=== PATIENT | female | born 1955 | race African-American/Black ===

== ENCOUNTER 2020-03-21 22:45 | Emergency (ER) | payer MEDICAID, MEDICARE ==
[~2020-03-21] VITALS: Ht 167.6 cm; Wt 111.0 kg
[~2020-03-21 22:45] MED LIST: LISI-186 PO; METF-414 PO
[2020-03-22 00:25] LABS: BASOPHILS % 0.8 % (0.0-2.0); EOSINOPHILS % 2.5 % (0.0-5.0); HEMOGLOBIN. 11.3 g/dL (12.0-16.0); LYMPHOCYTES % 22.4 % (20.0-50.0); MEAN CORPUSCULAR HEMOGLOBIN 30.6 pg (28.0-32.0); MEAN CORPUSCULAR VOLUME 89.5 fL (81.0-99.0); MEAN PLATELET VOLUME 9.4 fl (7.4-10.4); MONOCYTES % 8.4 % (2.0-8.0); NEUTROPHILS % 65.9 % (40.0-76.0); PLATELET 190 x1000/uL (130-400); RED BLOOD CELL COUNT 3.69 mill/uL (4.2-5.4); RED CELL DISTRIBUTION WIDTH 13.9 % (11.6-14.6)
[2020-03-22 00:42] LABS: *AMPHETAMINES SCREEN URINE NEGATIVE (NEGATIVE); *BARBITURATES SCREEN URINE NEGATIVE (NEGATIVE); *BENZODIAZEPINES SCREEN URINE NEGATIVE (NEGATIVE)
[2020-03-22 00:43] LABS: *COCAINE SCREEN URINE NEGATIVE (NEGATIVE); CANNABINOID URINE SCREEN PRESUMTIVE POSITIVE (NEGATIVE); METHADONE URINE SCREEN NEGATIVE (NEGATIVE); OPIATES URINE SCREEN NEGATIVE (NEGATIVE); PHENCYCLIDINE URINE SCREEN NEGATIVE (NEGATIVE)
[2020-03-22 00:49] LABS: CHLORIDE 105 mEq/L (98-107)
[2020-03-22 00:56] LABS: ETHANOL BLOOD < 10 mg/dL
[2020-03-22] MEDS ORDERED: DOXYCYCLINE HYCLATE 100 MG/VIAL IV ONE (02:00)
[2020-03-22] MEDS ORDERED: CEFTRIAXONE 1 G PREMIX 50 ML IV SCH (02:00)
[2020-03-22] MEDS ORDERED: DOXYCYCLINE 100 MG in DEXT 5% WATER 100 ML IV SCH (02:00)
[2020-03-22 10:16] VITALS: BP 143/92
== END 2020-03-22 11:15 | disposition short-term general hospital (02) ==
LOC: ER 22:45
DX: J18.9 Pneumonia, unspecified organism (principal); R09.02 Hypoxemia; I10 Essential (primary) hypertension; E11.9 Type 2 diabetes mellitus without complications; E66.9 Obesity, unspecified; Z68.39 Body mass index [BMI] 39.0-39.9, adult
CPT/HCPCS: 36415; 71045; 80053; 80305; 80320; 83690; 83880; 84484; 85025; 93005; 96365; 96367; 99284; J0696; J3490; J7060; 99285; G0480